=== PATIENT | female | born 1955 | race Two or more races ===

== ENCOUNTER → 2024-08-21 | Outpatient (CLI) | payer OTHER, MEDICAID, SELFPAY ==
--- NOTE | 2024-08-21 11:15 | XR_ITS ---
Examination: Screening digital mammography, bilateral Computer aided detection 3-D breast Tomosynthesis, bilateral Date and time of exam: 08/21/2024, 11:12 AM Comparisons: 08/31/2022 Indications: Screening Technique: Nonmagnified MLO, CC views of the breasts to been obtained, reconstructed from 3-D Tomosynthesis images. R2 computer aided detection program utilized for evaluation of suspicious masses and/or abnormal calcifications. 3-D Tomosynthesis images obtained. Technologist: Findings: The breasts are heterogeneously dense, which may obscure small masses. No evidence of abnormal masses or suspicious calcifications. Impression: BI-RADS category 1: Negative findings (within normal) Recommend 1 year follow-up mammogram
== END | disposition home or self-care (01) ==
LOC: CDIM 10:57
PROVIDERS: Referring Provider Nurse Practitioner Family; Visit Provider Nurse Practitioner Family
DX: Z12.31 Encounter for screening mammogram for malignant neoplasm of breast (principal); R92.313 Mammographic fatty tissue density, bilateral breasts
CPT/HCPCS: 77063; 77067

== ENCOUNTER 2024-10-18 06:40 | Day surgery (SDC) | payer OTHER, MEDICAID, SELFPAY ==
[2024-10-17 13:40] VITALS: BMI 37.2
[2024-10-18] VITALS (15 sets, daily range): BP systolic 101–158; BP diastolic 51–75; PULSE 76–95; RESP 12–37; TEMP 36.2–37.1; O2SAT 95–100; BMI 37.4
[2024-10-18] MEDS: SODIUM CHLORIDE 0.9% 500 ML 500 ML 100 ML IV (07:29)
[2024-10-18] MEDS: DiphenhydrAMINE INJ 50 MG/ML VIAL 25 MG IV (07:29)
[2024-10-18] MEDS: fentaNYL CIT INJ 50 mCg/ML AMP 2ML (ASD USE ONLY) IV (07:29)
[2024-10-18] MEDS: MIDAZOLAM INJ 1 MG/ML VIAL 2 ML (ASD USE ONLY) 2 MG IV (07:49)
== END 2024-10-18 09:00 | disposition home or self-care (01) ==
PROVIDERS: PCP Nurse Practitioner Family; Referring Provider Surgery; Visit Provider Surgery
PROC: 0DBE8ZX Excision of Large Intestine, Via Natural or Artificial Opening Endoscopic, Diagnostic (ICD-10-PCS; CPT 45380; principal; 2024-10-18 07:30)
DX: Z12.11 Encounter for screening for malignant neoplasm of colon (principal); K62.89 Other specified diseases of anus and rectum; D12.3 Benign neoplasm of transverse colon; D12.8 Benign neoplasm of rectum
CPT/HCPCS: 45385; 45380; J1200; J2250; J3010; J7040